=== PATIENT | male | born 1965 | race Caucasian/White ===

== ENCOUNTER 2017-04-25 17:58 | Emergency (ER) | payer MEDICARE, MEDICAID ==
--- NOTE | 2017-04-25 18:34 | RAD ---
PORTABLE AP CHEST: Date: 04/25/17 HISTORY: Altered mental status. COMPARISON: 10/09/16. FINDINGS: Cardiac silhouette and pulmonary vasculature are within normal limits. Lungs remain clear. There has been no interval change from the prior study. IMPRESSION: No acute cardiopulmonary process. POS: [facility]
[2017-04-25 18:53] LABS: #Lymphocytes 1.1 thou/uL (1.20-3.40); #Monocytes 0.3 thou/uL (0.11-0.59); #Neutrophils 8.9 thou/uL (1.40-6.50); %Basophils 0.2 % (0.0-1.0); %Eosinophils 0.3 % (0.0-10.0); %Lymphocytes 10.3 % (21.0-51.0); %Monocytes 2.7 % (0.0-10.0); Mean Platelet Volume 6.6 fL (7.4-10.4); Red Blood Cell (RBC) Count 4.67 mill/uL (4.70-6.10); White Blood Cell (WBC) Count 10.2 thou/uL (4.8-10.8)
[2017-04-25 19:16] LABS: ALT (SGPT) 14 U/L (8-55); AST (SGOT) 16 U/L (5-34); Alkaline Phosphatase 89 U/L (40-150); Anion Gap 14 mmol/L (10-20); BUN (Urea Nitrogen) 13 mg/dL (8.9-20.6); Bilirubin, Total 0.5 mg/dL (0.2-1.2); CK (CPK) 149 U/L (30-200); Calc. Creatinine Clearance 0 mL/min (70-130); Calcium 8.6 mg/dL (7.8-10.44); Carbon Dioxide 22 mmol/L (22-29); Chloride 109 mmol/L (98-107); Estimated GFR-MDRD Greater than 90; Globulin 2.7 g/dL (2.4-3.5); Lipase 15 U/L (8-78); Protein, Total 6.6 g/dL (6.0-8.3)
[2017-04-25 19:18] LABS: Troponin I Less than 0.010 ng/mL (< 0.028)
[2017-04-25 19:24] LABS: Bilirubin Negative (Negative); Blood, Urine Negative (Negative); Glucose, Urine (Dipstick) Negative (Negative); Ketone, Urine Negative (Negative); Nitrite Negative (Negative); Protein, Urine (Dipstick) Negative (Neg-Trace); Urobilinogen 0.2 mg/dL (0.2-1.0)
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
== END 2017-04-25 19:43 | disposition home or self-care (01) ==
LOC: ERS 17:58
DX: T67.5XXA Heat exhaustion, unspecified, initial encounter (principal); R55 Syncope and collapse; J44.9 Chronic obstructive pulmonary disease, unspecified; F32.9 Major depressive disorder, single episode, unspecified; F41.9 Anxiety disorder, unspecified; F17.210 Nicotine dependence, cigarettes, uncomplicated; Z21 Asymptomatic human immunodeficiency virus [HIV] infection status
CPT/HCPCS: 36415; 70450; 71010; 80053; 81003; 82553; 83605; 83690; 84484; 85025; 93005; 96360

== ENCOUNTER 2017-06-17 08:07 | Emergency (ER) | payer MEDICARE, MEDICAID ==
[2017-06-17] MEDS ORDERED: Morphine 4 MG/ML VIAL ONE (08:30)
[2017-06-17] MEDS ORDERED: Ondansetron HCl/PF 4 MG/2 ML Vial ONE (08:30)
[2017-06-17] MEDS ORDERED: Ketorolac Tromethamine 30 MG/ML VIAL ONE (08:42)
[2017-06-17 08:49] LABS: #Eosinphils 0.1 thou/uL (0.0-0.7); #Lymphocytes 1.6 thou/uL (1.20-3.40); #Neutrophils 6.2 thou/uL (1.40-6.50); %Basophils 0.1 % (0.0-1.0); %Eosinophils 0.9 % (0.0-10.0); %Lymphocytes 18.1 % (21.0-51.0); %Monocytes 11.2 % (0.0-10.0); Hematocrit 47.7 % (42.0-52.0); Red Blood Cell (RBC) Count 4.73 mill/uL (4.70-6.10); White Blood Cell (WBC) Count 8.8 thou/uL (4.8-10.8)
[2017-06-17 09:00] LABS: PTT 27.7 SEC (22.9-36.1); Prothrombin Time 12.8 SEC (12.0-14.7)
[2017-06-17] MEDS ORDERED: traMADol HCl 50 MG TAB ONE (09:23)
[2017-06-17 09:24] LABS: Anion Gap 13 mmol/L (10-20); BUN (Urea Nitrogen) 23 mg/dL (8.9-20.6); Calc. Creatinine Clearance 0 mL/min (70-130); Calcium 9.5 mg/dL (7.8-10.44); Carbon Dioxide 26 mmol/L (22-29); Chloride 101 mmol/L (98-107); Estimated GFR-MDRD 90
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
== END 2017-06-17 09:25 | disposition home or self-care (01) ==
LOC: ERS 08:07
DX: S02.32XA Fracture of orbital floor, left side, initial encounter for closed fracture (principal); S02.40DA Maxillary fracture, left side, initial encounter for closed fracture; S02.40DB Maxillary fracture, left side, initial encounter for open fracture; S02.40FA Zygomatic fracture, left side, initial encounter for closed fracture; B20 Human immunodeficiency virus [HIV] disease; J44.9 Chronic obstructive pulmonary disease, unspecified; F41.9 Anxiety disorder, unspecified; F32.9 Major depressive disorder, single episode, unspecified; F17.210 Nicotine dependence, cigarettes, uncomplicated; Z79.899 Other long term (current) drug therapy; Y04.2XXA Assault by strike against or bumped into by another person, initial encounter
CPT/HCPCS: 70450; 70486; 80048; 80307; 85025; 85610; 85730; 96374; 96375; 99406; J1885; J2270; J2405

== ENCOUNTER 2018-03-15 18:00 | Emergency (ER) | payer MEDICARE, MEDICAID ==
[2018-03-15] MEDS ORDERED: Adacel (T-DAP) 0.5 ML VIAL ONE (18:07)
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
== END 2018-03-15 20:51 | disposition left against medical advice (07) ==
LOC: ERS 18:00
DX: Z53.21 Procedure and treatment not carried out due to patient leaving prior to being seen by health care provider (principal)
CPT/HCPCS: 90715

== ENCOUNTER 2018-05-31 12:32 | Emergency (ER) | payer MEDICARE, MEDICAID | END 2018-05-31 14:26 | disposition left against medical advice (07) | LOC: ERS 12:32 | DX: Z53.21 Procedure and treatment not carried out due to patient leaving prior to being seen by health care provider (principal) ==

== ENCOUNTER 2018-06-02 20:24 | Emergency (ER) | payer MEDICARE, MEDICAID ==
--- NOTE | 2018-06-02 21:14 | RAD ---
TWO VIEWS CHEST: 1 08/02/17 HISTORY: Productive cough with fever. PA and lateral views of the chest is obtained on 06/02/18. Comparison made to a previous exam from 10/09/16. Two views chest demonstrates hyperaeration and air trapping compatible with changes of COPD. No evide nce of effusions, pneumonia, or pneumothorax seen. IMPRESSION: Air trapping compatible with changes of COPD. No evidence of pneumonia or pneumothorax seen. POS: [facility]
[2018-06-02] MEDS ORDERED: Ketorolac Tromethamine 60 MG/2 ML VIAL ONE (21:27)
[2018-06-02] MEDS ORDERED: Azithromycin 250 MG TAB ONE (21:52)
== END 2018-06-02 22:00 | disposition home or self-care (01) ==
LOC: ERS 20:24
DX: J40 Bronchitis, not specified as acute or chronic (principal); B20 Human immunodeficiency virus [HIV] disease; J44.9 Chronic obstructive pulmonary disease, unspecified; F17.210 Nicotine dependence, cigarettes, uncomplicated; Z79.899 Other long term (current) drug therapy
CPT/HCPCS: 71046; 96372; J1885

== ENCOUNTER 2018-06-07 09:08 | Emergency (ER) | payer MEDICARE, MEDICAID ==
[2018-06-07 10:06] LABS: #Eosinphils 0.3 thou/uL (0.0-0.7); #Lymphocytes 1.4 thou/uL (1.20-3.40); #Monocytes 0.7 thou/uL (0.11-0.59); #Neutrophils 5.6 thou/uL (1.40-6.50); %Basophils 0.4 % (0.0-1.0); %Eosinophils 3.3 % (0.0-10.0); %Lymphocytes 17.2 % (21.0-51.0); %Monocytes 8.2 % (0.0-10.0); %Neutrophils 70.9 % (42.0-75.0); Hemoglobin 15.5 g/dL (14.0-18.0); Mean Corpuscular Hemoglobin 32.5 pg (27.0-31.0); Mean Corpuscular Volume 98.4 fL (78.0-98.0); Platelet Count 394 thou/uL (130-400); RBC Distribution Width 11.8 % (11.5-14.5); Red Blood Cell (RBC) Count 4.76 mill/uL (4.70-6.10); White Blood Cell (WBC) Count 7.9 thou/uL (4.8-10.8)
--- NOTE | 2018-06-07 10:23 | RAD ---
PA AND LATERAL VIEWS CHEST: Date: 06/07/18 HISTORY: Bronchitis, cough. History of HIV. FINDINGS: Comparison made with exam of 06/02/18. The heart size is normal. The lungs are well expanded without focal areas of consolidation, pneumotho races, or pleural effusions. No acute osseous abnormalities are seen. IMPRESSION: No radiographic evidence of acute cardiopulmonary process. POS: [facility]
[2018-06-07 10:25] LABS: ALT (SGPT) 16 U/L (8-55); AST (SGOT) 17 U/L (5-34); Albumin 4.1 g/dL (3.5-5.0); Alkaline Phosphatase 78 U/L (40-150); Anion Gap 13 mmol/L (10-20); BUN (Urea Nitrogen) 21 mg/dL (8.9-20.6); Bilirubin, Total 0.3 mg/dL (0.2-1.2); Calc. Creatinine Clearance 0 mL/min (70-130); Calcium 9.5 mg/dL (7.8-10.44); Carbon Dioxide 21 mmol/L (22-29); Chloride 104 mmol/L (98-107); Estimated GFR-MDRD 79; Globulin 3.4 g/dL (2.4-3.5); Glucose 125 mg/dL (70-105); Potassium 4.9 mmol/L (3.5-5.1); Protein, Total 7.5 g/dL (6.0-8.3); Sodium 133 mmol/L (136-145)
[2018-06-07 10:43] LABS: Bilirubin Negative (Negative); Blood, Urine Negative (Negative); Clarity CLEAR (Clear); Glucose, Urine (Dipstick) Negative (Negative); Leukocyte Negative (Negative); Nitrite Negative (Negative); Protein, Urine (Dipstick) Negative (Neg-Trace); Specific Gravity, Urine 1.013 (1.002-1.036); Urobilinogen 0.2 mg/dL (0.2-1.0)
== END 2018-06-07 12:06 | disposition home or self-care (01) ==
LOC: ERS 09:08
DX: R05 Cough (principal); Z21 Asymptomatic human immunodeficiency virus [HIV] infection status; J44.9 Chronic obstructive pulmonary disease, unspecified; F17.210 Nicotine dependence, cigarettes, uncomplicated; Z79.899 Other long term (current) drug therapy
CPT/HCPCS: 36415; 71046; 80053; 81003; 85025; 96360

== ENCOUNTER 2019-01-02 07:30 | Outpatient (CLI) | payer MEDICARE, MEDICAID ==
--- NOTE | 2019-01-02 09:07 | CT ---
CT orbits. HISTORY: Fracture. Axial images are obtained with coronal and sagittal reconstructions. CT images demonstrate no evidence of acute fractures. The frontal, ethmoid, maxillary and sphenoid sinuses are well aerated. Likely old traumatic changes seen in the anterior left maxillary sinus wall as well as the inferior o rbital wall. These appear to be chronic. No evidence of acute facial fracture seen. IMPRESSION: No evidence of acute orbital fractures.
== END 2019-01-02 07:31 | disposition home or self-care (01) ==
LOC: BICCT 07:30
PROVIDERS: ATTEND Ophthalmology
DX: S02.32XA Fracture of orbital floor, left side, initial encounter for closed fracture (principal)
CPT/HCPCS: 70480

== ENCOUNTER 2019-04-20 09:09 | Emergency (ER) | payer MEDICARE, MEDICAID ==
--- NOTE | 2019-04-20 09:41 | RAD ---
EXAM: XR Shoulder Rt 3 View STANDARD PROVIDED CLINICAL HISTORY: Pain FINDINGS: There is no evidence for fracture or other acute osseous abnormality. Alignment appears anatomic. Shaina nt spaces appear preserved. IMPRESSION: No evidence for an acute osseous abnormality. If there is persistent clinical concern, conservative m anagement and follow-up imaging advised.
== END 2019-04-20 10:02 | disposition home or self-care (01) ==
LOC: ERS 09:09
DX: M75.51 Bursitis of right shoulder (principal); B20 Human immunodeficiency virus [HIV] disease; J44.9 Chronic obstructive pulmonary disease, unspecified; F17.210 Nicotine dependence, cigarettes, uncomplicated; Z79.899 Other long term (current) drug therapy

== ENCOUNTER 2019-08-30 04:06 | Emergency (ER) | payer MEDICARE, MEDICAID ==
[2019-08-30 04:46] LABS: #Basophils 0.1 thou/uL (0.0-0.2); #Eosinphils 0.5 thou/uL (0.0-0.7); #Monocytes 1.2 thou/uL (0.11-0.59); #Neutrophils 6.4 thou/uL (1.40-6.50); %Basophils 0.6 % (0.0-1.0); %Eosinophils 5.2 % (0.0-10.0); %Lymphocytes 11.2 % (21.0-51.0); %Monocytes 13.4 % (0.0-10.0); %Neutrophils 69.6 % (42.0-75.0); Hemoglobin 13.5 g/dL (14.0-18.0); Mean Corpuscular HGB CONC 33.7 g/dL (32.0-36.0); Mean Corpuscular Hemoglobin 33.3 pg (27.0-31.0); Mean Corpuscular Volume 98.8 fL (78.0-98.0); Mean Platelet Volume 6.5 fL (7.4-10.4); Platelet Count 200 thou/uL (130-400); RBC Distribution Width 11.4 % (11.5-14.5); Red Blood Cell (RBC) Count 4.04 mill/uL (4.70-6.10); White Blood Cell (WBC) Count 9.2 thou/uL (4.8-10.8)
[2019-08-30 05:05] LABS: Bilirubin Negative (Negative); Blood, Urine Negative (Negative); Clarity Clear (Clear); Glucose, Urine (Dipstick) Normal (Negative); Leukocyte Negative Leu/uL (Negative); Nitrite Negative (Negative); Protein, Urine (Dipstick) Negative (Neg-Trace); Urobilinogen Normal mg/dL (Less than 2)
[2019-08-30 05:09] LABS: ALT (SGPT) 7 U/L (8-55); AST (SGOT) 8 U/L (5-34); Albumin 3.2 g/dL (3.5-5.0); Alkaline Phosphatase 73 U/L (40-110); Anion Gap 7 mmol/L (10-20); BUN (Urea Nitrogen) 14 mg/dL (8.4-25.7); Bilirubin, Total 0.4 mg/dL (0.2-1.2); Calc. Creatinine Clearance 0 mL/min (70-130); Carbon Dioxide 23 mmol/L (22-29); Chloride 109 mmol/L (98-107); Estimated GFR-MDRD Greater than 90; Globulin 2.3 g/dL (2.4-3.5); Glucose 113 mg/dL (70-105); Potassium 4.2 mmol/L (3.5-5.1); Protein, Total 5.5 g/dL (6.0-8.3); Sodium 135 mmol/L (136-145)
== END 2019-08-30 05:36 | disposition home or self-care (01) ==
LOC: ERS 04:06
DX: K08.89 Other specified disorders of teeth and supporting structures (principal); R53.81 Other malaise; J44.9 Chronic obstructive pulmonary disease, unspecified; B20 Human immunodeficiency virus [HIV] disease; F17.210 Nicotine dependence, cigarettes, uncomplicated; Z79.899 Other long term (current) drug therapy
CPT/HCPCS: 36415; 80053; 81003; 85025; 87804; 99283

== ENCOUNTER 2020-01-27 15:04 | Outpatient (CLI) | payer MEDICARE, MEDICAID ==
--- NOTE | 2020-01-27 16:15 | MRI ---
EXAM: MRI right shoulder PROVIDED CLINICAL HISTORY: Pain COMPARISON: None FINDINGS: Evaluation is limited by patient motion. There is at least high-grade partial-thickness bursal surface tearing involving the far anterior dist al supraspinatus tendon at the footplate. The components of the rotator cuff appear otherwise intact. The long head biceps tendon appears intact and normally located. The glenoid labrum and glenohumeral articular cartilage are suboptimally evaluated in the absence of joint distention. There is signal alteration within the superior labrum that may reflect SLAP tear. No focal articular cartilage loss is evident. The amount of fluid within the glenohumeral joint is physiologic. There is conspicuous subacromial neely bdeltoid bursal fluid. Acromioclavicular joint osteoarthrosis is demonstrated without significant mass effect upon the subja cent supraspinatus. No focal concerning regional marrow or muscular signal abnormality apparent. IMPRESSION: 1. At least high-grade partial-thickness bursal surface tear involving the anterior distal supraspina tus tendon at the footplate. Conspicuous subacromial subdeltoid bursal fluid may reflect bursitis or an occult full-thickness component to this tear. 2. Findings suspicious for SLAP tear.
== END 2020-01-27 15:05 | disposition home or self-care (01) ==
LOC: BICMRI 15:04
PROVIDERS: ATTEND Internal Medicine Infectious Disease
DX: M75.01 Adhesive capsulitis of right shoulder (principal); M75.111 Incomplete rotator cuff tear or rupture of right shoulder, not specified as traumatic

== ENCOUNTER 2020-08-18 10:06 | Emergency (ER) | payer MEDICARE, MEDICAID ==
--- NOTE | 2020-08-18 11:00 | RAD ---
Chest AP view INDICATION: Cough and chest soreness COMPARISON: Prior exam dated April 25, 2017 and chest 2 views dated June 07, 2018. FINDINGS: Lungs: There is a new nodular airspace opacity within the right lung apex. Left lung is clear. Cardiac silhouette: The cardiomediastinal silhouette appears within normal limits. Pulmonary vasculature: Normal Pleural spaces: No pleural effusion or pneumothorax is demonstrated. Upper abdomen: No abnormality seen. Osseous structures: No acute osseous abnormality. Additional findings: None. IMPRESSION: New nodular airspace opacity the right lung apex. Recommend a follow-up CT the thorax with IV contras t. Additional evaluation.
[2020-08-18 12:02] LABS: Bilirubin Negative (Negative); Blood, Urine Negative (Negative); Glucose, Urine (Dipstick) Negative (Negative); Ketone, Urine Negative (Negative); Leukocyte Negative (Negative); Nitrite Negative (Negative); Protein, Urine (Dipstick) Negative (Neg-Trace); Specific Gravity, Urine 1.025 (1.005-1.030); Urobilinogen 0.2 mg/dL (Less than 2); pH, Urine 5.5 (5.0-9.0)
[2020-08-18 12:13] LABS: Clarity Clear (Clear)
== END 2020-08-18 11:29 | disposition left against medical advice (07) ==
LOC: ERS 10:06
DX: R05 Cough (principal); R30.0 Dysuria; Z20.822 Contact with and (suspected) exposure to COVID-19; J44.9 Chronic obstructive pulmonary disease, unspecified; F17.210 Nicotine dependence, cigarettes, uncomplicated; Z79.899 Other long term (current) drug therapy
CPT/HCPCS: 71045; 81003

== ENCOUNTER 2020-08-30 14:50 | Inpatient (IN) | payer MEDICARE, MEDICAID ==
[~2020-08-30 14:50] MED LIST: Iopamidol-370 76% 500 ML 1 ML ONE
--- NOTE | 2020-08-30 15:39 | RAD ---
RADIOGRAPH CHEST 1 VIEW: DATE: 08/30/2020 TIME: 3:18 PM HISTORY: 54-year-old female with cough and dyspnea with chest pain, worsening symptoms COMPARISON: 08/18/2020 FINDINGS: The previously demonstrated right apical infiltrate has become much larger, with consolidation involv ing a large portion of the right upper lobe including apex. New finding of cavitation with air-fluid levels. Infiltrate extends to right hilum. Cardiomediastinal silhouette is within normal limits. Nonspecific small faint chronic density at left upper lobe unchanged. No pneumothorax. No effacement of lateral costophrenic angles. IMPRESSION: Traumatic, rapid interval worsening of now severe cavitating pneumonia of right upper lobe
[2020-08-30 16:00] LABS: #Eosinphils 0.8 thou/uL (0.0-0.7); #Lymphocytes 1.2 thou/uL (1.20-3.40); #Monocytes 1.1 thou/uL (0.11-0.59); #Neutrophils 5.4 thou/uL (1.40-6.50); %Basophils 0.4 % (0.0-1.0); %Eosinophils 9.8 % (0.0-10.0); %Lymphocytes 13.6 % (21.0-51.0); %Monocytes 12.5 % (0.0-10.0); %Neutrophils 63.6 % (42.0-75.0); Hemoglobin 11.7 g/dL (14.0-18.0); Mean Corpuscular Hemoglobin 32.6 pg (27.0-31.0); Mean Corpuscular Volume 95.9 fL (78.0-98.0); Mean Platelet Volume 5.8 fL (7.4-10.4); Platelet Count 310 thou/uL (130-400); RBC Distribution Width 11.3 % (11.5-14.5); Red Blood Cell (RBC) Count 3.59 mill/uL (4.70-6.10); White Blood Cell (WBC) Count 8.5 thou/uL (4.8-10.8)
[2020-08-30] MEDS ORDERED: Cefepime 2 GM VIAL ONE (16:07)
[2020-08-30 16:21] LABS: ALT (SGPT) 9 U/L (8-55); AST (SGOT) 10 U/L (5-34); Albumin 2.7 g/dL (3.5-5.0); Alkaline Phosphatase 57 U/L (40-110); Anion Gap 12 mmol/L (10-20); BUN (Urea Nitrogen) 19 mg/dL (8.4-25.7); Bilirubin, Total 0.2 mg/dL (0.2-1.2); Calc. Creatinine Clearance 0 mL/min (70-130); Calcium 8.1 mg/dL (7.8-10.44); Carbon Dioxide 22 mmol/L (22-29); Chloride 110 mmol/L (98-107); Globulin 2.8 g/dL (2.4-3.5); Glucose 104 mg/dL (70-105); Potassium 3.9 mmol/L (3.5-5.1); Protein, Total 5.5 g/dL (6.0-8.3); Sodium 140 mmol/L (136-145)
[2020-08-30] MEDS ORDERED: Vancomycin 1 GM/200 ML BAG ONE (16:42)
--- NOTE | 2020-08-30 16:49 | CT ---
EXAM: CT of the chest with contrast HISTORY: Pneumonia. Patient left the hospital recently AGAINST MEDICAL ADVICE. COMPARISON: Chest x-rays 08/30/2020, 08/18/2020; CT chest 02/20/2007 TECHNIQUE: Multiple contiguous axial images were obtained in a CT the chest with contrast. Coronal an d sagittal reformats were performed. FINDINGS: HEART: Normal in size without focal cardiac abnormality MEDIASTINUM: No hilar or mediastinal lymphadenopathy. LUNGS: There is severe consolidation of the right upper lobe. Destructive changes are seen of the hetal g parenchyma in the right upper lobe. A very subtle area of groundglass opacity seen in the superior aspect of the right middle lobe. No infiltrates are seen in the other lobes of the lungs. A stable bulla is seen in the left apex with scarring in the left apex. Paraseptal emphysematous changes are seen. A 5 mm and 7 mm nodule are seen in the lingula. 2 nodules are seen in the right upp er lobe measuring up to 5 mm in size. Evaluation of the right upper lobe is limited secondary to the extensive pneumonia. PLEURAL SPACE: No pleural effusion. No pneumothorax. CHEST WALL SOFT TISSUES: Unremarkable OSSEOUS STRUCTURES: Degenerative changes in the spine. VISUALIZED SUBDIAPHRAGMATIC STRUCTURES: Left kidney appears small compared to the right IMPRESSION: 1. Right upper and middle lobe pneumonia. There is parenchymal destruction in the right upper lobe. 2. Scattered pulmonary nodule should be followed with repeat chest CT in 6 months once the pneumonia has been treated and has resolved.
[2020-08-30 18:20] LABS: Bilirubin Negative (Negative); Blood, Urine Negative (Negative); Clarity Clear (Clear); Glucose, Urine (Dipstick) Normal (Negative); Ketone, Urine Negative (Negative); Leukocyte Negative Leu/uL (Negative); Nitrite Negative (Negative); Protein, Urine (Dipstick) Negative (Neg-Trace); Urobilinogen Normal mg/dL (Less than 2); pH, Urine 5.5 (5.0-9.0)
[2020-08-30] MEDS ORDERED: Acetaminophen 325 MG TAB PO PRN (21:29)
[2020-08-30] MEDS ORDERED: HYDROcodone/Acetaminophen 5/325 mg Tablet PO PRN (21:29)
[2020-08-30] MEDS ORDERED: Ondansetron PF 4 MG/2 ML Vial IVP PRN (21:29)
[2020-08-30] MEDS ORDERED: Ondansetron ODT 4 MG TAB PO PRN (21:29)
--- NOTE | 2020-08-30 21:37 | PDOC.HHP ---
Hospitalist HPI SOB, Weakness, cough History of Present Illness: This is a 54-year-old male patient with a history of rotator cuff injury, HIV since 2006, bipolar disorder, seizure disorder and COPD who presents with a 2- week history of worsening chest pain, shortness of breath and cough. Of note patient was seen here about 12 days ago complaining of shortness of breath and chest tightness with cough productive of clear sputum. After having a chest x-ray in a.m. refused any further intervention and left AMA. Covid test could not be done as she refused. His chest x-ray at the time was concerning for right upper lobe consolidation versus mass. He has been seen by Dr. Coronado for HIV management Since having left ear apparently has not on any antibiotics her symptoms have worsenedleading him to return for further evaluation. He comes in today complaining of worsening cough shortness of breath and pleuritic chest pain on the right side. He also has some night sweats and general malaise. Cough is productive of greenish sputum however denies hemoptysis. Also denies any fevers. At presentation his blood pressure was 131/95, pulse 91, respiratory rate 18, temperature 98.5 a saturation 98 on room air. CBC showed mild anemia of 11.7, platelets 310 and WBC 8.5. Chemistry showed no significant abnormality. Lactate was 0.8. Urinalysis was unremarkable. Lung imaging showed on CT right upper and middle lobe pneumonia with parenchymal destruction in the right upper lobe. Also has scattered pulmonary nodules which was recommended to be followed in 6 months after pneumonia resolves. He was started on cefepime and vancomycin and Levaquin. Hospitalist team was consulted for admission. Allergies/Adverse Reactions: Allergy/AdvReac Type Severity Reaction Status Date / Time Penicillins Allergy Verified 08/30/20 21:38 Sulfa (Sulfonamide Allergy Verified 08/30/20 21:38 Antibiotics) Home Medications: Medication Instructions Recorded Confirmed Type Amoxicillin/Potassium Clav 1 each PO BID 08/30/20 08/30/20 History [Augmentin 875-125 Tablet] Dolutegravir Sodium/Lamivudine 1 each PO DAILY 08/30/20 08/30/20 History [Dovato 50-300 mg Tablet] Ibuprofen [Motrin] 800 mg PO Q8HR PRN 08/30/20 08/30/20 History Levofloxacin [Levaquin] 750 mg PO DAILY 08/30/20 08/30/20 History Past History: PMHx: HIV, pneumonia PSHx:Dental surgery FHx: None of significance Social: Drinks socially, uses alcohol, ongoing smoker. Uses marijuana Hospitalist HPI ROS Constitutional: reports: sweats, weakness, malaise. denies: fever, chills Respiratory: reports: cough, shortness of breath (Greenish sputum), SOB with excertion, pleuritic pain. denies: hemoptysis Gastrointestinal: denies: nausea, vomiting, abdominal pain Musculoskeletal: denies: neck pain, shoulder pain, arm pain Neurological: denies: weakness, numbness, incoordination All other systems reviewed; all pertinent +/- noted in HPI/Subj Hospitalist Exam General Appearance: awake alert General - other findings: Chronically ill looking Eye: PERRL, anicteric sclera Respiratory - other findings: Coarse breath sounds on right. Gastrointestinal: soft, non-tender, non-distended, normal bowel sounds Extremities: no cyanosis, no clubbing, no edema Neurological: cranial nerve grossly intact, no focal deficits Psychiatric: normal affect, normal behavior, A&O x 3 Hospitalist Results Result Diagrams: 08/30/20 15:51 08/30/20 15:51 Lab results: Laboratory Last Values WBC 8.5 thou/uL (4.8-10.8) 08/30/20 15:51 RBC 3.59 mill/uL (4.70-6.10) L 08/30/20 15:51 Hgb 11.7 g/dL (14.0-18.0) L 08/30/20 15:51 Hct 34.4 % (42.0-52.0) L 08/30/20 15:51 MCV 95.9 fL (78.0-98.0) 08/30/20 15:51 MCH 32.6 pg (27.0-31.0) H 08/30/20 15:51 MCHC 34.0 g/dL (32.0-36.0) 08/30/20 15:51 RDW 11.3 % (11.5-14.5) L 08/30/20 15:51 Plt Count 310 thou/uL (130-400) 08/30/20 15:51 MPV 5.8 fL (7.4-10.4) L 08/30/20 15:51 Neutrophils % 63.6 % (42.0-75.0) 08/30/20 15:51 Lymphocytes % 13.6 % (21.0-51.0) L 08/30/20 15:51 Monocytes % 12.5 % (0.0-10.0) H 08/30/20 15:51 Eosinophils % 9.8 % (0.0-10.0) 08/30/20 15:51 Basophils % 0.4 % (0.0-1.0) 08/30/20 15:51 Neutrophils # 5.4 thou/uL (1.40-6.50) 08/30/20 15:51 Lymphocytes # 1.2 thou/uL (1.20-3.40) 08/30/20 15:51 Monocytes # 1.1 thou/uL (0.11-0.59) H 08/30/20 15:51 Eosinophils # 0.8 thou/uL (0.0-0.7) H 08/30/20 15:51 Basophils # 0.0 thou/uL (0.0-0.2) 08/30/20 15:51 Sodium 140 mmol/L (136-145) 08/30/20 15:51 Potassium 3.9 mmol/L (3.5-5.1) 08/30/20 15:51 Chloride 110 mmol/L (98-107) H 08/30/20 15:51 Carbon Dioxide 22 mmol/L (22-29) 08/30/20 15:51 Anion Gap 12 mmol/L (10-20) 08/30/20 15:51 BUN 19 mg/dL (8.4-25.7) 08/30/20 15:51 Creatinine 0.83 mg/dL (0.7-1.3) 08/30/20 15:51 Estimated GFR (MDRD) Greater than 90 08/30/20 15:51 Glucose 104 mg/dL (70-105) 08/30/20 15:51 Lactic Acid 0.8 mmol/L (0.5-2.2) 08/30/20 16:11 Calcium 8.1 mg/dL (7.8-10.44) 08/30/20 15:51 Total Bilirubin 0.2 mg/dL (0.2-1.2) 08/30/20 15:51 AST 10 U/L (5-34) 08/30/20 15:51 ALT 9 U/L (8-55) 08/30/20 15:51 Alkaline Phosphatase 57 U/L (40-110) 08/30/20 15:51 Serum Total Protein 5.5 g/dL (6.0-8.3) L 08/30/20 15:51 Albumin 2.7 g/dL (3.5-5.0) L 08/30/20 15:51 Globulin 2.8 g/dL (2.4-3.5) 08/30/20 15:51 Albumin/Globulin Ratio 1.0 g/dL (1.2-2.2) L 08/30/20 15:51 Urine Color Light-Yellow (Yellow) 08/30/20 17:10 Urine Clarity Clear (Clear) 08/30/20 17:10 Urine pH 5.5 (5.0-9.0) 08/30/20 17:10 Ur Specific [place] 1.030 (1.002-1.036) 08/30/20 17:10 Urine Protein Negative mg/dL (Neg-Trace) 08/30/20 17:10 Urine Glucose (UA) Normal mg/dL (Negative) 08/30/20 17:10 Urine Ketones Negative mg/dL (Negative) 08/30/20 17:10 Urine Blood Negative (Negative) 08/30/20 17:10 Urine Nitrite Negative (Negative) 08/30/20 17:10 Urine Bilirubin Negative (Negative) 08/30/20 17:10 Urine Urobilinogen Normal mg/dL (Less than 2) 08/30/20 17:10 Ur Leukocyte Esterase Negative Aggie/uL (Negative) 08/30/20 17:10 Hospitalist H&P A/P Plan: This is a 54-year-old male patient with a history of HIV and recent lung infiltrates who presents with worsening cough shortness of breath with chest imaging concerning for right-sided cavitary pneumonia. Right upper middle lobe pneumonia Given cavitating lesions concerns for TB Currently received Vanco cefepime and Levaquin We will continue on cefepime and Vanco ID consult in a.m. for antibiotic management and further management HIV ID consult for ongoing antiretroviral therapy. Anemia Hemoglobin 11.7 Monitor H&H. VT prophylaxisLovenox CODE STATUSfull code
[2020-08-30 21:46] VITALS: BMI 20.3
[2020-08-30] MEDS: Vancomycin 1 GM in Premix Bag 1 BAG IVPB SCH (22:30)
[2020-08-30] MEDS: Nicotine 21 MG PATCH TOP SCH (22:30)
[2020-08-31] MEDS ORDERED: Cefepime 2 GM in Sodium Chloride 0.9% 100 ML IVPB SCH (04:00)
[2020-08-31] MEDS: Cefepime 2 GM in Sodium Chloride 0.9% 100 ML IVPB SCH ×2 (04:00→13:45)
[2020-08-31 07:24] LABS: #Eosinphils 0.8 thou/uL (0.0-0.7); #Lymphocytes 1.4 thou/uL (1.20-3.40); #Neutrophils 5.5 thou/uL (1.40-6.50); %Basophils 0.3 % (0.0-1.0); %Eosinophils 9.3 % (0.0-10.0); %Lymphocytes 16.4 % (21.0-51.0); %Monocytes 11.6 % (0.0-10.0); %Neutrophils 62.4 % (42.0-75.0); Hemoglobin 11.6 g/dL (14.0-18.0); Mean Corpuscular Hemoglobin 32.8 pg (27.0-31.0); Mean Corpuscular Volume 96.7 fL (78.0-98.0); Mean Platelet Volume 5.8 fL (7.4-10.4); Platelet Count 322 thou/uL (130-400); RBC Distribution Width 11.3 % (11.5-14.5); Red Blood Cell (RBC) Count 3.55 mill/uL (4.70-6.10); White Blood Cell (WBC) Count 8.8 thou/uL (4.8-10.8)
[2020-08-31 07:39] LABS: Anion Gap 12 mmol/L (10-20); BUN (Urea Nitrogen) 15 mg/dL (8.4-25.7); Calc. Creatinine Clearance 80 mL/min (70-130); Calcium 8.1 mg/dL (7.8-10.44); Carbon Dioxide 25 mmol/L (22-29); Chloride 107 mmol/L (98-107); Glucose 112 mg/dL (70-105); Potassium 3.5 mmol/L (3.5-5.1); Sodium 140 mmol/L (136-145)
[2020-08-31] MEDS: Vancomycin 1 GM in Premix Bag 1 BAG IVPB SCH ×4 (07:54→22:37)
[2020-08-31] MEDS: Enoxaparin Sodium 40 MG/0.4 ML SYRINGE SC SCH (07:54)
[2020-08-31] MEDS ORDERED: Vancomycin 1.5 GRAM/300 ML BAG 1.5 GM in Premix Bag 1 BAG IVPB SCH (09:00)
[2020-08-31] MEDS: Polyethylene Glycol 3350 17 GM Packet PO SCH (09:28)
[2020-08-31] MEDS: Docusate 100 MG CAP PO PRN ×2 (09:28→20:49)
[2020-08-31] MEDS ORDERED: Fioricet 325/50/40 mg Tablet PO PRN (09:34)
[2020-08-31] MEDS ORDERED: Fioricet 325/50/40 mg Tablet PO SCH (09:45)
[2020-08-31] MEDS ORDERED: Nicotine 21 MG PATCH TD SCH (09:45)
[2020-08-31] MEDS: Lorazepam 0.5 MG TAB PO PRN ×2 (10:14→19:05)
[2020-08-31] MEDS ORDERED: metroNIDAZOLE 500 MG TAB PO SCH (13:15)
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
[2020-08-31 15:03] LABS: Vancomycin, Trough 13.4 ug/mL
--- NOTE | 2020-08-31 16:35 | PDOC.HOSPP ---
- Subjective Subjective: Pt was seen and examined. still has some cough. - Objective Vital Signs & Weight: Vital Signs (12 hours) Temp Pulse Resp BP Pulse Ox 08/31/20 12:00 97.9 F 80 20 106/67 95 08/31/20 08:47 98 08/31/20 07:59 98.3 F 85 20 104/70 98 Weight Weight 141 lb 11.2 oz Result Diagrams: 08/31/20 06:57 08/31/20 06:57 Radiology Reviewed by me: Yes EKG Reviewed by me: Yes Hospitalist ROS - Medication Medications: Active Medications Generic Name Dose Route Start Last Admin Trade Name Freq PRN Reason Stop Dose Admin Docusate Sodium 100 mg 08/31/20 08:39 08/31/20 09:28 Docusate 100 Mg Cap PO 100 mg BIDPRN PRN Administration Constipation Enoxaparin Sodium 40 mg 08/31/20 09:00 08/31/20 07:54 Enoxaparin Sodium 40 Mg/0.4 Ml Syringe SC Not Given 0900 LUZ Cefepime HCl 2 gm/ Sodium 100 mls @ 200 mls/hr 08/31/20 03:00 08/31/20 13:45 Chloride IVPB 100 mls 0300,1500 LUZ Administration Lorazepam 0.5 mg 08/31/20 09:35 08/31/20 10:14 Lorazepam 0.5 Mg Tab PO 0.5 mg Q4H PRN Administration Anxiety Nicotine 21 mg 08/30/20 22:15 08/30/20 22:30 Nicotine 21 Mg Patch TOP 21 mg Q24HR LUZ Administration Nicotine 21 mg 08/31/20 09:45 08/31/20 10:14 Nicotine 21 Mg Patch TD 08/31/20 21:00 21 mg NOW LUZ Administration Polyethylene Glycol 17 gm 08/31/20 09:00 08/31/20 09:28 Polyethylene Glycol 3350 17 Gm Packet PO 17 gm DAILY LUZ Administration Hospitalist Exam Vitals: Vital Signs (12 hours) Temp Pulse Resp BP Pulse Ox 08/31/20 12:00 97.9 F 80 20 106/67 95 08/31/20 08:47 98 08/31/20 07:59 98.3 F 85 20 104/70 98 Weight Weight 141 lb 11.2 oz General Appearance: NAD Eye: PERRL ENT: normocephalic atraumatic Neck: supple Heart: RRR Respiratory: CTAB Gastrointestinal: soft Extremities: no cyanosis Skin: normal turgor Neurological: cranial nerve grossly intact Musculoskeletal: normal tone Psychiatric: normal affect, normal behavior, A&O x 3 Hosp A/P - Plan This is a 54-year-old male patient with a history of HIV and recent lung infiltrates who presents with worsening cough shortness of breath with chest imaging concerning for right-sided cavitary pneumonia. Right upper middle lobe pneumonia Given cavitating lesions concerns for mycobacterium vs other etiologies including malignancy check Quantiferon. Appreciate ID input, cont IV abx as per ID. Follow [facility] will consult pul for possible bronchoscopy HIV ID consult for ongoing antiretroviral therapy. Anemia Hemoglobin 11.7 Monitor H&H. VT prophylaxisLovenox CODE STATUSfull code
[2020-08-31] MEDS: metroNIDAZOLE 500 MG TAB PO SCH ×2 (16:41→22:37)
[2020-08-31] MEDS ORDERED: Haloperidol Lactate 5 MG/ML VIAL SLOW IVP SCH (18:15)
[2020-08-31 18:30] LABS: SARS-CoV-2 PCR NAA for Saliva Not Detected (NotDetected)
[2020-08-31] MEDS ORDERED: LAMIVUDINE PO SCH (19:08)
[2020-08-31] MEDS ORDERED: DOLUTEGRAVIR SODIUM PO SCH (19:08)
[2020-08-31] MEDS: Ibuprofen 800 MG TAB PO PRN (20:03)
[2020-08-31 20:20] LABS: SARS-CoV-2 IgG Ab Non-Reactive (NonReactive); SARS-CoV-2 IgG Index 0.01 S/CO (< 1.40)
[2020-08-31] MEDS: Nicotine 21 MG PATCH TOP SCH (20:49)
[2020-08-31] MEDS ORDERED: Haloperidol Lactate 5 MG/ML VIAL SLOW IVP PRN (21:00)
[2020-09-01] MEDS: Cefepime 2 GM in Sodium Chloride 0.9% 100 ML IVPB SCH ×2 (03:20→13:42)
[2020-09-01] MEDS: Ibuprofen 800 MG TAB PO PRN ×2 (03:23→10:52)
[2020-09-01] MEDS: Lorazepam 0.5 MG TAB PO PRN ×4 (03:24→20:10)
[2020-09-01] MEDS: metroNIDAZOLE 500 MG TAB PO SCH ×4 (05:23→22:59)
[2020-09-01] MEDS: Vancomycin 1 GM in Premix Bag 1 BAG IVPB SCH ×3 (05:23→11:31)
[2020-09-01 05:45] LABS: #Eosinphils 0.9 thou/uL (0.0-0.7); #Lymphocytes 1.4 thou/uL (1.20-3.40); #Monocytes 1.1 thou/uL (0.11-0.59); #Neutrophils 5.2 thou/uL (1.40-6.50); %Basophils 0.2 % (0.0-1.0); %Eosinophils 10.3 % (0.0-10.0); %Lymphocytes 15.9 % (21.0-51.0); %Monocytes 12.3 % (0.0-10.0); %Neutrophils 61.2 % (42.0-75.0); Hemoglobin 11.9 g/dL (14.0-18.0); Mean Corpuscular HGB CONC 34.1 g/dL (32.0-36.0); Mean Corpuscular Hemoglobin 33.2 pg (27.0-31.0); Mean Corpuscular Volume 97.4 fL (78.0-98.0); Mean Platelet Volume 6.1 fL (7.4-10.4); Platelet Count 324 thou/uL (130-400); RBC Distribution Width 11.4 % (11.5-14.5); Red Blood Cell (RBC) Count 3.59 mill/uL (4.70-6.10); White Blood Cell (WBC) Count 8.5 thou/uL (4.8-10.8)
[2020-09-01] MEDS: Enoxaparin Sodium 40 MG/0.4 ML SYRINGE SC SCH (07:42)
[2020-09-01] MEDS: Dolutegravir Sodium/Lamivudine [Dovato 50-300 Mg Tablet] PO SCH (07:43)
[2020-09-01] MEDS: Docusate 100 MG CAP PO PRN ×2 (07:43→22:59)
[2020-09-01] MEDS: Polyethylene Glycol 3350 17 GM Packet PO SCH (07:43)
[2020-09-01] MEDS ORDERED: HYDROcodone/Acetaminophen 5/325 mg Tablet PO PRN (08:09)
[2020-09-01 11:15] LABS: Vancomycin, Trough 23.6 ug/mL
[2020-09-01] MEDS: methylPREDNISolone Sod Succ 40 MG VIAL IVP SCH ×3 (11:31→23:00)
[2020-09-01 12:20] LABS: Chloride 107 mmol/L (98-107); Potassium 4.2 mmol/L (3.5-5.1); Sodium 138 mmol/L (136-145)
[2020-09-01 12:21] LABS: Calcium 8.2 mg/dL (7.8-10.44); Glucose 87 mg/dL (70-105)
[2020-09-01 12:23] LABS: Anion Gap 12 mmol/L (10-20); Carbon Dioxide 23 mmol/L (22-29)
[2020-09-01 12:24] LABS: CRP (Inflammatory) 12.98 mg/dL (= or < 0.5); Calc. Creatinine Clearance 97 mL/min (70-130)
[2020-09-01 12:25] LABS: BUN (Urea Nitrogen) 16 mg/dL (8.4-25.7)
[2020-09-01 12:27] LABS: Magnesium 1.8 mg/dL (1.6-2.6)
--- NOTE | 2020-09-01 12:36 | CON ---
DATE OF CONSULTATION: HISTORY OF PRESENT ILLNESS: A 54-year-old cachectic gentleman with history of immunodeficiency syndrome for the last 14 years or so. He is followed here by local infectious disease specialist. He presents to the ER now with symptoms of worsening shortness of breath, cough, maybe fever. He said he is coughing some yellow sputum. He was recently seen in the ER and was discharged home. His x-ray shows a right upper lung necrotizing pneumonia. CAT scan confirmed the above. He prior to that discharge home on Levaquin and Augmentin. This morning, he tells me he is still having some discomfort, but not much shortness of breath. He has continued to smoke marijuana and he drinks socially. Previous history of pneumonia, but no history of TB or asthma. PAST MEDICAL HISTORY: 1. HIV. 2. COPD. 3. Chronic pain. 4. Bipolar disorder. 5. Anxiety. PREVIOUS SURGERIES: None recently. Some dental surgery. REVIEW OF SYSTEMS: Otherwise 10-point negative. PHYSICAL EXAMINATION: VITAL SIGNS: His temperature 97, pulse 70, respiratory rate on room air, and blood pressure 120/83. CHEST: Rhonchi, right greater than left. CARDIAC: Normal S1 and S2. No gallops. ABDOMEN: Soft. No masses. LABORATORY DATA: His coronavirus test was negative. White count is 8000 and hemoglobin and hematocrit 05/1933. His chemistry profile was normal. Albumin is 2.7. His x-ray compared to a month ago shows worsening right upper lung infiltrate. ASSESSMENT: Right upper lung necrotizing pneumonia. PLAN: Agree with anaerobic coverage. He is on Flagyl, Maxipime, and vancomycin. I have added low-dose steroids. Sputum for acid-fast has been cultured. We will follow. TIME SPENT: 70 minutes, 50% in direct patient care. Job ID: [id number]
[2020-09-01 16:09] LABS: Absolute CD4 372 /uL (359-1519); Lymphocytes/Gated Cell Count 1.2 x10E3/uL (0.7-3.1); Total Lymphocyte 15 % (Not Estab.)
--- NOTE | 2020-09-01 16:33 | PDOC.HOSPP ---
- Subjective Subjective: Patient was seen examined at bedside. No acute events overnight. - Objective Vital Signs & Weight: Vital Signs (12 hours) Temp Pulse Resp BP Pulse Ox 09/01/20 13:46 83 16 93 L 09/01/20 11:24 98.3 F 92 20 127/66 93 L 09/01/20 09:03 97 09/01/20 07:55 97.5 F L 78 20 120/83 97 Weight Weight 141 lb 11.2 oz I&O: 08/31/20 09/01/20 09/02/20 06:59 06:59 06:59 Intake Total 2020 Output Total 650 Balance 1370 Result Diagrams: 09/01/20 05:26 09/01/20 10:41 Radiology Reviewed by me: Yes EKG Reviewed by me: Yes Hospitalist ROS - Medication Medications: Active Medications Generic Name Dose Route Start Last Admin Trade Name Freq PRN Reason Stop Dose Admin Albuterol/Ipratropium 3 ml 09/01/20 13:00 09/01/20 13:46 Ipratropium/Albuterol Sulfate 3 Ml Neb NEB 3 ml [id number] LUZ Administration Docusate Sodium 100 mg 08/31/20 08:39 09/01/20 07:43 Docusate 100 Mg Cap PO 100 mg BIDPRN PRN Administration Constipation Enoxaparin Sodium 40 mg 08/31/20 09:00 09/01/20 07:42 Enoxaparin Sodium 40 Mg/0.4 Ml Syringe SC Not Given 0900 LUZ Cefepime HCl 2 gm/ Sodium 100 mls @ 200 mls/hr 08/31/20 03:00 09/01/20 13:42 Chloride IVPB 100 mls 0300,1500 LUZ Administration Ibuprofen 800 mg 08/31/20 19:07 09/01/20 03:23 Ibuprofen 800 Mg Tab PO 800 mg Q8H PRN Administration Pain Lorazepam 0.5 mg 08/31/20 09:35 09/01/20 07:43 Lorazepam 0.5 Mg Tab PO 0.5 mg Q4H PRN Administration Anxiety Methylprednisolone Sodium Succinate 40 mg 09/01/20 12:00 09/01/20 11:31 Methylprednisolone Sod Succ 40 Mg Vial IVP 40 mg Q6HR LUZ Administration Metronidazole 500 mg 08/31/20 18:00 09/01/20 10:52 Metronidazole 500 Mg Tab PO 500 mg Q6HR LUZ Administration Nicotine 21 mg 08/30/20 22:15 08/31/20 20:49 Nicotine 21 Mg Patch TOP 21 mg Q24HR LUZ Administration Dolutegravir Sodium/ 0 each 09/01/20 09:00 09/01/20 07:43 Lamivudine [Dovato PO 1 each 50-300 Mg Tablet] DAILY LUZ Administration Polyethylene Glycol 17 gm 08/31/20 09:00 09/01/20 07:43 Polyethylene Glycol 3350 17 Gm Packet PO 17 gm DAILY LUZ Administration Quetiapine Fumarate 25 mg 08/31/20 21:00 08/31/20 19:05 Quetiapine Fumarate 25 Mg Tab PO 25 mg HS LUZ Administration Sodium Chloride 10 ml 08/31/20 21:00 09/01/20 07:44 Flush - Normal Saline 10 Ml Syringe IVF 10 ml Q12HR LUZ Administration Hospitalist Exam Vitals: Vital Signs (12 hours) Temp Pulse Resp BP Pulse Ox 09/01/20 13:46 83 16 93 L 09/01/20 11:24 98.3 F 92 20 127/66 93 L 09/01/20 09:03 97 09/01/20 07:55 97.5 F L 78 20 120/83 97 Weight Weight 141 lb 11.2 oz General Appearance: NAD Eye: PERRL ENT: normocephalic atraumatic Neck: supple Heart: RRR Respiratory: CTAB Gastrointestinal: soft, non-tender Extremities: no cyanosis Skin: normal turgor Neurological: cranial nerve grossly intact Musculoskeletal: normal tone Hosp A/P - Plan This is a 54-year-old male patient with a history of HIV and recent lung infiltrates who presents with worsening cough shortness of breath with chest imaging concerning for right-sided cavitary pneumonia. Right upper middle lobe pneumonia cont IV as per ID. Appreciate input from pulmonology [facility]/Quanteferon-TB pending HIV ID consult for ongoing antiretroviral therapy. Home med resumed Anemia Hemoglobin 11.7 Monitor H&H. VT prophylaxisLovenox CODE STATUSfull code
[2020-09-01] MEDS ORDERED: Nicotine 21 MG PATCH TD SCH (17:00)
[2020-09-01] MEDS: Nicotine 21 MG PATCH TOP SCH (20:12)
[2020-09-01] MEDS: VANCOMYCIN 1.25 GM/250 ML BAG 1.25 GM in Premix Bag 1 BAG IVPB SCH (20:13)
[2020-09-02] MEDS ORDERED: Bisacodyl 10 MG SUPP ONE (05:55)
[2020-09-02] MEDS: Cefepime 2 GM in Sodium Chloride 0.9% 100 ML IVPB SCH (07:38)
[2020-09-02] MEDS: VANCOMYCIN 1.25 GM/250 ML BAG 1.25 GM in Premix Bag 1 BAG IVPB SCH ×2 (07:38→15:51)
[2020-09-02] MEDS: metroNIDAZOLE 500 MG TAB PO SCH ×2 (07:39→12:13)
[2020-09-02] MEDS: methylPREDNISolone Sod Succ 40 MG VIAL IVP SCH ×3 (07:39→12:12)
[2020-09-02] MEDS ORDERED: VANCOMYCIN 1.25 GM/250 ML BAG 1.25 GM in Premix Bag 1 BAG IVPB SCH (08:00)
[2020-09-02] MEDS: Polyethylene Glycol 3350 17 GM Packet PO SCH (09:52)
[2020-09-02] MEDS: Enoxaparin Sodium 40 MG/0.4 ML SYRINGE SC SCH (09:52)
[2020-09-02] MEDS: Dolutegravir Sodium/Lamivudine [Dovato 50-300 Mg Tablet] PO SCH (09:52)
--- NOTE | 2020-09-02 12:26 | PRG ---
DATE OF SERVICE: 09/02/2020 SUBJECTIVE: Yusef Patricio is a 54-year-old gentleman. This morning, he is better. OBJECTIVE: VITAL SIGNS: Temperature 98, pulse 140, respirations 18, saturations room air, blood pressure 90/58. CHEST: No wheezing. No crackles. CARDIAC: Normal S1, S2. No gallops. ABDOMEN: No masses. LABORATORY DATA: Unremarkable. C-reactive protein is 12. ASSESSMENT: Right upper lung necrotizing pneumonia, COPD, tobacco abuse, HIV. PLAN: Still awaiting sputum . Continue antibiotics, steroids, supportive care. He has refrained from smoking. Job ID: [id number]
[2020-09-02] MEDS ORDERED: Albuterol 200 PUFF (6.7GM INHALER) INH SCH (13:00)
[2020-09-02 14:09] LABS: #Lymphocytes 1.2 thou/uL (1.20-3.40); #Monocytes 0.7 thou/uL (0.11-0.59); #Neutrophils 12.3 thou/uL (1.40-6.50); %Eosinophils 0.2 % (0.0-10.0); %Lymphocytes 8.2 % (21.0-51.0); %Neutrophils 86.6 % (42.0-75.0); Hemoglobin 11.4 g/dL (14.0-18.0); Mean Corpuscular HGB CONC 33.3 g/dL (32.0-36.0); Mean Corpuscular Hemoglobin 32.1 pg (27.0-31.0); Mean Corpuscular Volume 96.3 fL (78.0-98.0); Mean Platelet Volume 5.9 fL (7.4-10.4); Platelet Count 427 thou/uL (130-400); RBC Distribution Width 11.4 % (11.5-14.5); Red Blood Cell (RBC) Count 3.56 mill/uL (4.70-6.10); White Blood Cell (WBC) Count 14.2 thou/uL (4.8-10.8)
[2020-09-02 14:41] LABS: Anion Gap 8 mmol/L (10-20); BUN (Urea Nitrogen) 17 mg/dL (8.4-25.7); CRP (Inflammatory) 8.63 mg/dL (= or < 0.5); Calc. Creatinine Clearance 95 mL/min (70-130); Calcium 8.3 mg/dL (7.8-10.44); Carbon Dioxide 30 mmol/L (22-29); Chloride 107 mmol/L (98-107); Glucose 156 mg/dL (70-105); Potassium 4.1 mmol/L (3.5-5.1); Sodium 141 mmol/L (136-145)
--- NOTE | 2020-09-02 14:45 | PDOC.DS.DS ---
Provider Date of Admission: 08/30/20 17:42 Date of Discharge: 09/02/20 Admitting Provider: Ca Bautista MD Consultations: Infectious Disease, Pulmonary Primary Care Physician: [place] Course Hospital Course: Pt is a 54 years old gentleman who has significant past medical histor y of HIV infection, followed by Dr. Coronado as outpatient. He currently is on Dovato. He is appeared to be compliant with his HIV medication per Dr. Coronado' note. He presented with 2 weeks history of worsening chest pain, shortness of breath, and cough. Patient was actually evaluated about 10 days ago, at that time he left AMA. Initial work-up in the ED, including CT chest, shows right upper lobe and right middle lobe pneumonia with parenchyma destruction of the right upper lobe. It is likely attribute to his chest pain. At any rate, patient was admitted to hospitalist service. ID was consulted. Patient was seen by Dr. Coronado, and adjusted antibiotics including vancomycin, cefepime, and Flagyl. His Covid was negative. We also sent an AFP, and QuantiFERON. Pulmonology was also consulted, recommend cont with IV abx. Results not available at this time. During his hospital stay, he has multiple occasions of aggressive behavior towards nursing staff, and demanding to leave the hospital to go smoke, he also found to smoking there bathroom as well. He was also screaming at nursing staff and threatened to leave the hospital. Myself as well as Dr. Coronado tried to explain to him numerous with regard to his condition. However, he was insisted that he will leave anyway. Therefore, Dr. Coronado recommended to discharge him on oral antibiotics including clindamycin and Augmentin for 6-week. I also added probiotics given duration of his antibiotics. He will follow in the office for further management of his PNA and HIV. He is aware of his condition can deteriorate, however, he insists of leaving anyway. Lab Results: 09/02/20 13:49 09/02/20 13:49 Abnormal Lab Results - Last 48 hrs 09/01/20 05:26: RBC 3.59 L, Hgb 11.9 L, Hct 34.9 L, MCH 33.2 H, RDW 11.4 L, MPV 6.1 L, Lymphocytes % 15.9 L, Monocytes % 12.3 H, Eosinophils % 10.3 H, Monocytes # 1.1 H, Eosinophils # 0.9 H 09/01/20 10:41: C-Reactive Protein 12.98 H 09/02/20 13:49: Carbon Dioxide 30 H, Anion Gap 8 L, C-Reactive Protein 8.63 H 09/02/20 13:49: WBC 14.2 H, RBC 3.56 L, Hgb 11.4 L, Hct 34.3 L, MCH 32.1 H, RDW 11.4 L, Plt Count 427 H, MPV 5.9 L, Neutrophils % 86.6 H, Lymphocytes % 8.2 L, Neutrophils # 12.3 H, Monocytes # 0.7 H Microbiology - Entire Visit 08/30/20 16:11 Venous blood - Left Hand Blood Culture - Preliminary NO GROWTH AT 48 HOURS 08/30/20 16:11 Venous blood - Left Arm Blood Culture - Preliminary NO GROWTH AT 48 HOURS Vitals: Vital Signs (12 hours) Temp Pulse Resp BP Pulse Ox 09/02/20 08:00 97.9 F 81 19 139/65 97 Weight Weight 141 lb 11.2 oz Physical Exam: The patient was seen and examined on the day of discharge. General Appearance: NAD Eye: PERRL ENT: normocephalic atraumatic Neck: supple Respiratory: CTAB Cardiovascular: RRR Gastrointestinal: soft Extremities: no cyanosis Skin: normal turgor Neurological: cranial nerve grossly intact Musculoskeletal: normal tone PSYCH: normal affect, normal behavior, A&O x 3 Problem (1) Pneumonia Code(s): J18.9 - PNEUMONIA, UNSPECIFIED ORGANISM Status: Acute (2) HIV (human immunodeficiency virus infection) Code(s): B20 - HUMAN IMMUNODEFICIENCY VIRUS [HIV] DISEASE Status: Acute (3) Anemia Code(s): D64.9 - ANEMIA, UNSPECIFIED Status: Acute (4) Aggressive behavior Code(s): R46.89 - OTHER SYMPTOMS AND SIGNS INVOLVING APPEARANCE AND BEHAVIOR Status: Acute (5) Tobacco abuse Code(s): Z72.0 - TOBACCO USE Status: Acute Time Spent in discharge related activities (mins): 35 Plan Prescriptions: Clindamycin [Cleocin] 450 mg PO Q6HR #378 cap Amoxicillin/Potassium Clav [Augmentin 875-125 Tablet] 1 each PO BID #84 tablet Lactobacillus Acidophilus [Probiotic] 1 capsule PO BID #60 capsule Home Medications: Medication Instructions Recorded Confirmed Type Amoxicillin/Potassium Clav 1 each PO BID 08/30/20 08/30/20 History [Augmentin 875-125 Tablet] Dolutegravir Sodium/Lamivudine 1 each PO DAILY 08/30/20 08/30/20 History [Dovato 50-300 mg Tablet] Ibuprofen [Motrin] 800 mg PO Q8HR PRN 08/30/20 08/30/20 History Amoxicillin/Potassium Clav 1 each PO BID #84 tablet 09/02/20 Rx [Augmentin 875-125 Tablet] Clindamycin [Cleocin] 450 mg PO Q6HR #378 cap 09/02/20 Rx Lactobacillus Acidophilus 1 capsule PO BID #60 capsule 09/02/20 Rx [Probiotic] Allergies: Penicillins Allergy (Verified 08/30/20 21:38) Sulfa (Sulfonamide Antibiotics) Allergy (Verified 08/30/20 21:38) hydrocodone Adverse Reaction (Severe, Verified 08/31/20 19:46) Anxiety per sister, patient becomes "mean and crazy" Discharge Instructions:: FOLLOW UP WITH PCP OR DR CORONADO FOR WEEKLY LABS: CBC, CRP, CMP YOUR PRESCRIPTIONS WERE SENT TO: [facility] [address] [place] [address] Referrals: JESICA GLORIA & [Primary Care Provider] - Disposition: HOME Quality CORE MEASURES:: N/A
--- NOTE | 2020-09-02 15:00 | PRG ---
DATE OF SERVICE: 09/02/2020 Mr. Patricio has developed behavioral issues, screaming at the nurses, and threatening to leave the hospital. I tried to reason with him and explained that the patient has to go through numerous interventions throughout the day and that may prevent them from getting an uninterrupted sleep like they would at home, but he is still quite unwilling to accommodate, so he requested to leave the hospital. I explained to him that it would not probably be in his best interest and he insisted to leave anyway, so what I am going to do is discharge him on oral clindamycin and Augmentin. Continue his HIV medications as previously and then follow up in the outpatient setting. I explained to him that there is a risk of recrudescence or worsening of the process, but he still insisted in leaving. Job ID: [id number]
[2020-09-02 19:49] VITALS: BP 121/76; TEMP 98
[2020-09-03 22:08] LABS: QuantiFERON-TB Gold Plus Negative (Negative)
== END 2020-09-02 16:13 | disposition home or self-care (01) | DRG 975 ==
LOC: ERS 14:50 → T4-A 17:42
PROVIDERS: ADMIT Internal Medicine; ATTEND Family Medicine
DX: J18.9 Pneumonia, unspecified organism (principal); J44.0 Chronic obstructive pulmonary disease with (acute) lower respiratory infection; B20 Human immunodeficiency virus [HIV] disease; D64.9 Anemia, unspecified; Z20.822 Contact with and (suspected) exposure to COVID-19; F17.200 Nicotine dependence, unspecified, uncomplicated; R46.89 Other symptoms and signs involving appearance and behavior; F31.9 Bipolar disorder, unspecified; G40.909 Epilepsy, unspecified, not intractable, without status epilepticus; Z88.0 Allergy status to penicillin; Z88.2 Allergy status to sulfonamides; Z88.1 Allergy status to other antibiotic agents
CPT/HCPCS: 36415; 71045; 71260; 80048; 80053; 80202; 81003; 83605; 83735; 85025; 85048; 86140; 86361; 86480; 86769; 87040; 87116; 87206; 87635; 94640; 94760; 96365; 96367; 96368; J0692; J1650; J1956; J2920; J3370; J3490; J7620; Q9967; U0003; U0005

== ENCOUNTER 2020-09-07 09:41 | Outpatient (CLI) | payer MEDICARE, MEDICAID ==
--- NOTE | 2020-09-07 10:02 | RAD ---
XR Chest Pa Lat STANDARD History: Cough. Pneumonia Comparison: Radiograph August 30, 2020 Findings: Similar appearance of the consolidative process in the right upper lobe the largest cavitat ion and internal debris. Cardiac silhouette and mediastinal contours are similar. No acute osseous abnormality. Impression: Similar appearance of the cavitation right upper lobe with adjacent pneumonia. No new und erlying mass.
== END 2020-09-07 09:42 | disposition home or self-care (01) ==
LOC: BICRAD 09:41
PROVIDERS: ATTEND Internal Medicine Infectious Disease
DX: J18.9 Pneumonia, unspecified organism (principal)
CPT/HCPCS: 71046

== ENCOUNTER 2020-10-06 03:31 | Emergency (ER) | payer MEDICARE, MEDICAID | END 2020-10-06 04:12 | disposition home or self-care (01) | LOC: ERS 03:31 | DX: R05 Cough (principal); Z21 Asymptomatic human immunodeficiency virus [HIV] infection status; J44.9 Chronic obstructive pulmonary disease, unspecified; F17.210 Nicotine dependence, cigarettes, uncomplicated | CPT/HCPCS: 99281 ==

== ENCOUNTER 2020-10-06 19:15 | Emergency (ER) | payer MEDICARE, MEDICAID ==
[2020-10-06] MEDS ORDERED: Ibuprofen 800 MG TAB ONE (19:42)
[2020-10-06] MEDS ORDERED: Albuterol 200 PUFF (6.7GM INHALER) ONE (19:42)
[2020-10-07 06:46] LABS: SARS-CoV-2 PCR by NAA Not Detected (NotDetected)
== END 2020-10-06 22:14 | disposition left against medical advice (07) ==
LOC: ERS 19:15
DX: J18.9 Pneumonia, unspecified organism (principal); J44.9 Chronic obstructive pulmonary disease, unspecified; Z20.822 Contact with and (suspected) exposure to COVID-19; Z21 Asymptomatic human immunodeficiency virus [HIV] infection status; F17.210 Nicotine dependence, cigarettes, uncomplicated
CPT/HCPCS: 71045; 94664; 99285; U0003; U0005; 87635

== ENCOUNTER 2020-10-07 19:16 | Emergency (ER) | payer MEDICARE, MEDICAID | END 2020-10-07 20:06 | disposition home or self-care (01) | LOC: ERS 19:16 | DX: Z00.00 Encounter for general adult medical examination without abnormal findings (principal) | CPT/HCPCS: 71045; 93005 ==

== ENCOUNTER 2020-11-16 14:15 | Outpatient (CLI) | payer MEDICARE, MEDICAID | END 2020-11-16 14:16 | disposition home or self-care (01) | LOC: BICRAD 14:15 | PROVIDERS: ATTEND Internal Medicine Infectious Disease | DX: J18.9 Pneumonia, unspecified organism (principal); J98.4 Other disorders of lung | CPT/HCPCS: 71046 ==

== ENCOUNTER 2020-12-29 11:06 | Outpatient (CLI) | payer MEDICARE, MEDICAID | END 2020-12-29 11:07 | disposition home or self-care (01) | LOC: BICRAD 11:06 | PROVIDERS: ATTEND Internal Medicine Infectious Disease | DX: J18.9 Pneumonia, unspecified organism (principal) | CPT/HCPCS: 71046 ==

== ENCOUNTER 2021-02-26 21:48 | Emergency (ER) | payer MEDICARE, MEDICAID | END 2021-02-26 23:45 | disposition home or self-care (01) | LOC: ERS 21:48 | DX: R91.1 Solitary pulmonary nodule (principal); Z21 Asymptomatic human immunodeficiency virus [HIV] infection status; F17.210 Nicotine dependence, cigarettes, uncomplicated; Z79.899 Other long term (current) drug therapy | CPT/HCPCS: 71250 ==

== ENCOUNTER 2021-05-04 13:11 | Outpatient (CLI) | payer MEDICARE, MEDICAID | END 2021-05-04 13:12 | disposition home or self-care (01) | LOC: BICRAD 13:11 | PROVIDERS: ATTEND Internal Medicine Infectious Disease | DX: J18.9 Pneumonia, unspecified organism (principal) | CPT/HCPCS: 71046 ==

== ENCOUNTER 2021-12-03 00:09 | Emergency (ER) | payer MEDICARE, MEDICAID ==
[2021-12-03] MEDS ORDERED: Lidocaine 1% PF 5 ML VIAL ONE (00:26)
== END 2021-12-03 00:42 | disposition home or self-care (01) ==
LOC: ERS 00:09
DX: S30.851A Superficial foreign body of abdominal wall, initial encounter (principal); J44.9 Chronic obstructive pulmonary disease, unspecified; F17.210 Nicotine dependence, cigarettes, uncomplicated; Z21 Asymptomatic human immunodeficiency virus [HIV] infection status; X00.0XXA Exposure to flames in uncontrolled fire in building or structure, initial encounter
CPT/HCPCS: 10120

== ENCOUNTER 2022-01-31 09:08 | Emergency (ER) | payer MEDICARE, MEDICAID ==
[2022-01-31 12:34] LABS: Bilirubin Negative (Negative); Blood, Urine Negative (Negative); Clarity Clear (Clear); Glucose, Urine (Dipstick) Normal (Negative); Ketone, Urine Negative (Negative); Leukocyte Negative Leu/uL (Negative); Nitrite Negative (Negative); Protein, Urine (Dipstick) Negative (Neg-Trace); Specific Gravity, Urine 1.028 (1.002-1.036); Urobilinogen Normal mg/dL (Less than 2); pH, Urine 5.5 (5.0-9.0)
[2022-01-31 12:43] LABS: Amphetamine Detected (NotDetected); Barbiturates Screen Not Detected (NotDetected); Benzodiazepine Screen Not Detected (NotDetected); Cocaine Metabolite Screen Not Detected (NotDetected); Methadone Not Detected (NotDetected); Methamphetamine Detected (NotDetected); Opiate Screen Not Detected (NotDetected); Oxycodone Screen Not Detected (NotDetected); Phencyclidine (PCP) Not Detected (NotDetected); THC/Cannabinoid Screen Detected (NotDetected); Tricyclic Screen Not Detected (NotDetected)
== END 2022-01-31 13:52 | disposition home or self-care (01) ==
LOC: ERS 09:08
DX: Z00.01 Encounter for general adult medical examination with abnormal findings (principal); R03.0 Elevated blood-pressure reading, without diagnosis of hypertension; J44.9 Chronic obstructive pulmonary disease, unspecified; I10 Essential (primary) hypertension; F17.210 Nicotine dependence, cigarettes, uncomplicated; Z79.899 Other long term (current) drug therapy; Z21 Asymptomatic human immunodeficiency virus [HIV] infection status
CPT/HCPCS: 80306; 81003; 93005

== ENCOUNTER 2022-02-09 00:03 | Emergency (ER) | payer MEDICARE, MEDICAID | END 2022-02-09 00:32 | disposition left against medical advice (07) | LOC: ERS 00:03 | DX: Z53.21 Procedure and treatment not carried out due to patient leaving prior to being seen by health care provider (principal) ==